=== PATIENT | male | born 1970 | race Caucasian/White ===

== ENCOUNTER 2024-06-26 16:56 | Emergency (ER) | payer OTHER, SELFPAY ==
--- NOTE | ~2024-06-26 | CT_ITS ---
CT brain wo con Ordering provider: Kyle Hernandez PA-C History: 53 years Male with . fall, head injury, rule out bleed . Comparison: None. Technique: CT of the head without contrast. Radiation reduction technique utilized.The dose-length pr oduct was 605.33 mGy-cm. FINDINGS: BRAIN PARENCHYMA AND CSF SPACES: No midline shift, mass effect or hemorrhage. The brain parenchyma a nd CSF spaces are otherwise normal. VISUALIZED PARANASAL SINUSES: Left Ethmoid sinus disease. Right nasoseptal deviation. MASTOIDS: Well aerated. BONES: The bones appear intact. SOFT TISSUES: Visualized nasopharynx is normal. Superficial soft tissues are normal. IMPRESSION: No acute intracranial findings. Reviewed, dictated and finalized at location A. [employer]
--- NOTE | ~2024-06-26 | CT_ITS ---
CT facial & cervical spine wo Ordering provider: Kyle Hernandez PA-C History: . fall, head injury, OD . Comparison: None. Technique: Thin slice axial CT of the facial bones was performed without contrast. Coronal and sagit carmel reformatted images were also obtained. . Automated exposure control and iterative reconstruction technique were employed. The dose-length product was 455.25 mGy-cm. FINDINGS: PARANASAL SINUSES: Bilateral frontal, left sphenoid, left maxillary and left ethmoid sinus disease.. Soft tissue density seen in the left nasal cavity. Clinical correlation advised. BONES: No facial fracture including no nasal bone fracture. Dental cares seen in the left upper jaw s econd tooth. ORBITS AND SUPERFICIAL SOFT TISSUES: The optic globes and orbits are normal. The superficial soft tis sues are normal. Bilateral lymph nodes are seen in the neck spaces. VISUALIZED MASTOIDS: Well aerated. LIMITED VISUALIZED BRAIN PARENCHYMA: Normal. IMPRESSION: No facial fracture. CT facial & cervical spine wo Ordering provider: Kyle Hernandez PA-C History: . fall, head injury, OD . Comparison: None. Technique: CT of the cervical spine was performed without contrast. Sagittal and coronal reformatted images were also obtained and reviewed. Automated exposure control and iterative reconstruction terrance hnique were employed. The dose-length product was 455.25 mGy-cm. FINDINGS: VERTEBRAE: No subluxation or acute fracture. The occipital condyles are intact. DISC SPACES: Moderate Narrowing of the disc C4-C5, C5-C6 and C6-C7. Multilevel uncovertebral joint osteoarthritic changes. Multilevel facet joint disease. Narrowing of t he bilateral foramina at the level of C4-C5. Narrowing of the left foramina at the level of C5-C6. Bi lateral narrowing of the foramina at the level of C6-C7. PARASPINOUS SOFT TISSUES: Normal. Fibrotic septae anchors changes in the lungs. IMPRESSION: No acute osseous abnormality cervical spine. Reviewed, dictated and finalized at location A. [facility] IMPRESSION: No facial fracture. CT facial & cervical spine wo Ordering provider: Kyle Hernandez PA-C History: . fall, head injury, OD . Comparison: None. Technique: CT of the cervical spine was performed without contrast. Sagittal a nd coronal reformatted images were also obtained and reviewed. Automated expos ure control and iterative reconstruction technique were employed. The dose-claudia th product was 455.25 mGy-cm. FINDINGS: VERTEBRAE: No subluxation or acute fracture. The occipital condyles are intact. DISC SPACES: Moderate Narrowing of the disc C4-C5, C5-C6 and C6-C7. Multilevel uncovertebral joint osteoarthritic changes. Multilevel facet joint d isease. Narrowing of the bilateral foramina at the level of C4-C5. Narrowing of the left foramina at the level of C5-C6. Bilateral narrowing of the foramina a t the level of C6-C7. PARASPINOUS SOFT TISSUES: Normal. Fibrotic septae anchors changes in the lungs.
[2024-06-26 16:50] VITALS: BP 139/88; PULSE 98; RESP 20; TEMP 36.6; O2SAT 100
--- NOTE | 2024-06-26 17:25 | ED_ITS ---
HPI - Overdose General Chief Complaint: Overdose Stated Complaint: OVERDOSE Time Seen by Provider: 06/26/24 17:02 Source: patient and EMS Mode of arrival: EMS Limitations: no limitations History of Present Illness HPI Narrative: This is a 53-year-old male who presents to the ED via EMS from home for chief complaint of overdose today. EMS reports that he reportedly snorted something and then went unresponsive. They report that his friend did the same thing last night and became unresponsive. EMS reports that they gave Narcan 5 mg total dose and he did awaken and become alert oriented. Patient reports that he thought that the friends substance in the bag was cocaine. States that he took some because he was feeling a little down. States that ?I will never do that shit again. He was noted to have head injury on arrival. Patient has no further complaints other than nausea at present. Denies chest pain, palpitations shortness of breath, headache, neck pain, back pain, vomiting or abdominal pain. Related Data Allergies Allergy/AdvReac Type Severity Reaction Status Date / Time No Known Allergies Allergy Unverified 04/26/14 16:55 Review of Systems Review of Systems: All systems as dictated in [facility] Social History Social History Substance use type: other Exam Narrative: GENERAL: Well-appearing, well-nourished, and in no acute distress. HEAD: Normocephalic, atraumatic. Mild frontal scalp hematoma present. EYES: PERRLA and EOMI. ENT: Mild ecchymosis and dried blood to the bridge of the nose and forehead. Nares clear, no rhinorrhea or epistaxis. Mucous membranes moist. Oropharynx without tonsillar hypertrophy exudate or other lesions. NECK: Supple. No adenopathy or masses. CHEST: No respiratory distress. Clear to auscultation. No wheezes rales or rhonchi. 100% room air. HEART: Regular rate and rhythm. No murmur heard. Normal peripheral pulses. ABDOMEN: Soft, nontender, nondistended, normal active bowel sounds. MSK: Normal range of motion. No edema. SKIN: Warm, dry, no rash. NEURO: Alert and oriented x4. No focal deficits. PSYCH: Normal mood and affect. Course Vital Signs Vital signs: Vital Signs Temperature 97.8 F 06/26/24 16:50 Pulse Rate 98 06/26/24 16:50 Respiratory Rate 20 06/26/24 16:50 Blood Pressure 139/88 06/26/24 16:50 Pulse Oximetry 100 06/26/24 16:50 Oxygen Delivery Room Air 06/26/24 16:50 Temperature 97.6 F 06/26/24 20:44 Pulse Rate 82 06/26/24 20:44 Respiratory Rate 16 06/26/24 20:44 Blood Pressure 146/92 H 06/26/24 20:44 Pulse Oximetry 95 06/26/24 20:44 Oxygen Delivery Nasal Cannula 06/26/24 19:34 Oxygen Flow Rate 2 06/26/24 19:34 MDM - Overdose MDM Narrative Medical decision making narrative: This is a 53-year-old male who presents to the ED for accidental drug ingestion. Patient was attempting to use cocaine which was likely placed with an opioid. Given Narcan in the field and arrives to the ED alert oriented. Stable vital signs.. Exam shows scalp hematoma and facial bruising. Asymptomatic on arrival. CT imaging of the brain, C-spine and facial bones are negative for acute findings. Presentation consistent with opioid overdose. Patient was observed 4 hours did not have any respiratory compromise or loss of consciousness. He remained stable and asymptomatic. Patient will be discharged in stable condition. Supportive measures discussed and return precautions given. Patient is understanding and agreeable with plan for discharge with PCP follow-up. Differential Diagnosis Differential diagnosis: Likely cocaine intoxication, drug overdose and accidental drug ingestion Discharge Plan Discharge Clinical Impression: Drug overdose Patient Disposition: Home, Self-Care Condition: Stable Instructions: Antibiotic Form Additional Instructions: Your seen today for probable opioid overdose. Please refrain from drug use in the future. Narcan has been prescribed for any potential overdose of opioids in the future. If you have any new or worsening symptoms please return to the ER for further evaluation. Prescriptions: New naloxone [Narcan] 4 mg/actuation spray,non-aerosol 4 mg intranasal Q2M PRN (Reason: opioid overdose) Qty: 2 0RF Rx Instructions: spray 1 dose into ONE nostril; alternate nostrils w each dose until help arrives Follow-up/Referrals: UNKNOWN,DOCTOR [Primary Care Provider] - Time of Disposition: 21:18
[2024-06-26] MEDS: SODIUM CHLORIDE 0.9% IV 1,000 ML 999 ML IV CONT (17:52)
[2024-06-26] MEDS: ONDANSETRON INJ 4 MG/2 ML VIAL IV PUSH (17:52)
[2024-06-26 18:43] VITALS: BP 140/100; PULSE 91; RESP 12; TEMP 36.6; O2SAT 94
[2024-06-26 19:34] VITALS: O2SAT 98
[2024-06-26 19:35] VITALS: BP 143/98; PULSE 86; RESP 16; TEMP 36.7; O2SAT 98
[2024-06-26 20:44] VITALS: BP 146/92; PULSE 82; RESP 16; TEMP 36.4; O2SAT 95
== END 2024-06-26 21:28 | disposition home or self-care (01) ==
PROVIDERS: Emergency Provider Physician Assistant
DX: T50.901A Poisoning by unspecified drugs, medicaments and biological substances, accidental (unintentional), initial encounter (principal); S00.03XA Contusion of scalp, initial encounter; S00.33XA Contusion of nose, initial encounter; S00.83XA Contusion of other part of head, initial encounter; X58.XXXA Exposure to other specified factors, initial encounter
CPT/HCPCS: 70450; 70486; 72125; 96361; 96374; 99284; J2405; J7030